=== PATIENT | male | born 1955 | race Caucasian/White ===

== ENCOUNTER 2017-05-06 19:47 | Inpatient (IN) | payer BC ==
[~2017-05-06] VITALS: Ht 188 cm; Wt 123.2 kg
[~2017-05-06 19:47] MED LIST: ALEVE220 MG PO; ASPIRIN81 M2 PO; VOLTAREN75 MG PO
[2017-05-06 20:47] LABS: MCH 31.2 PG (29.0-34.0); MCHC 34.6 G/DL (30.0-36.0); MCV 90.2 FL (86-99); MEAN PLAT.VOLUME 8.7 uM^3 (9.0-12.4); PLATELET COUNT 208 K/uL (156-360); RBC DIS.WIDTH-CV 11.7 % (11.8-14.6); RBC DIS.WIDTH-SD 38.7 % (39-53); WHITE BLOOD COUNT 12.7 K/uL (4.1-10.2)
[2017-05-06 20:56] LABS: CHLORIDE 98 mEq/L (99-109); POTASSIUM 4.2 mEq/L (3.7-5.4); SODIUM 134 mEq/L (136-147)
[2017-05-06 20:58] LABS: ADD MIUA? YES; BILIRUBIN NEGATIVE; BLOOD NEGATIVE; COLOR YELLOW ((YELLOW)); GLUCOSE (STRIP) NEGATIVE; KETONES 5; LEUKOCYTES NEGATIVE; NITRITE NEGATIVE; PROTEIN (STRIP) NEGATIVE; SPECIFIC GRAVITY 1.011 (1.000-1.030); UROBILINOGEN 0.2 MG/DL (0.2-1.0)
[2017-05-06 20:58] LABS: GLUCOSE 109 mg/dL (70-99)
[2017-05-06 20:59] LABS: ANION GAP 11 MEQ/L (2-14)
[2017-05-06 21:00] LABS: TOTAL BILIRUBIN 1.6 mg/dL (0.0-1.0)
[2017-05-06 21:01] LABS: ALKALINE PHOSPHATASE 91 IU/L (3-129)
[2017-05-06 21:02] LABS: GFR ESTIMATE (CALCULATED) > 59 mL/min/
[2017-05-06 21:03] LABS: UREA NITROGEN (BUN) 13 mg/dL (9-23)
[2017-05-06 21:09] LABS: BACTERIA RARE /HPF; EPITHELIAL CELLS NONE SEEN /HPF; MUCUS TRACE /LPF; RED BLOOD CELLS 0-5 /HPF (0-5); UCUL ADDED? NO; WHITE BLOOD CELLS 0-5 /HPF (0-5)
[2017-05-06 21:49] LABS: LIPASE 19 U/L (1.0-51.0)
[2017-05-07 00:45] LABS: APPEARANCE CLEAR/COLORLESS
[2017-05-07 00:46] LABS: CSF EOSINOPHILS ND % (0-25); MONONUCLEAR WBC'S ND % (50-90); POLYNUCLEAR WBC'S ND % (0-3); RED CELL AREA COUNTED 18; RED CELL COUNT 0 /MM^3 (0-1); RED CELL DILUTION 1; WBC AREA COUNTED 18; WBC DILUTION 1; WHITE CELL COUNT 0 /MM^3 (0-5); WHITE CELL RAW COUNT 0
[2017-05-07 04:31] VITALS: BP 134/76
[2017-05-07] MEDS ORDERED: ULTRAM50 MG PO (04:34)
[2017-05-07 07:39] LABS: INTERNAL CONTROL VALID? YES
[2017-05-07 08:27] VITALS: BP 101/51
[2017-05-07 09:47] LABS: MCH 31.6 PG (29.0-34.0); MCHC 35.1 G/DL (30.0-36.0); MCV 89.9 FL (86-99); MEAN PLAT.VOLUME 9.2 uM^3 (9.0-12.4); PLATELET COUNT 185 K/uL (156-360); RBC DIS.WIDTH-CV 11.8 % (11.8-14.6); RBC DIS.WIDTH-SD 38.6 % (39-53); RED BLOOD COUNT 4.34 M/uL (4.00-5.50); WHITE BLOOD COUNT 10.7 K/uL (4.1-10.2)
[2017-05-07 10:05] LABS: ANION GAP 10 MEQ/L (2-14); CHLORIDE 103 MEQ/L (99-109); GFR ESTIMATE (CALCULATED) > 59 mL/min/; GLUCOSE 108 mg/dL (70-99); POTASSIUM 3.9 MEQ/L (3.7-5.4); SAMPLE HEMOLYSIS CHECK 0; SAMPLE ICTERIC CHECK 0; SAMPLE LIPEMIA CHECK 0; SODIUM 136 MEQ/L (136-147); UREA NITROGEN (BUN) 14 mg/dL (9-23)
[2017-05-07 10:11] LABS: LYME DISEASE SEROLOGY SCREEN NEGATIVE (NEGATIVE)
[2017-05-07 11:57] VITALS: BP 133/69
[2017-05-07] MEDS ORDERED: FISH OIL 1,2001 EAC4 PO (12:24)
[2017-05-07 16:11] VITALS: BP 106/54
[2017-05-07 20:25] VITALS: BP 118/64
[2017-05-07 23:37] VITALS: BP 139/78
[2017-05-08 04:07] VITALS: BP 128/72
[2017-05-08 07:08] LABS: EOSINOPHIL (%) 0.3 % (0-5); HEMATOCRIT 39.3 % (38.0-50.0); IMMATURE GRANULOCYTE (%) 0.5 % (0.0-0.7); IMMATURE GRANULOCYTE COUNT 0.1 K/uL; INSTRUMENT ABS NEUTROPHIL CT 7.9 K/uL; MCH 32.2 PG (29.0-34.0); MCHC 34.9 G/DL (30.0-36.0); MCV 92.3 FL (86-99); MEAN PLAT.VOLUME 9.8 uM^3 (9.0-12.4); MONOCYTE (%) 12.8 % (3-12); MONOCYTE COUNT 1.3 K/uL (0-0.8); NEUTROPHIL (%) 76.3 % (45-76); NEUTROPHIL COUNT 7.9 K/uL (1.8-6.4); PLATELET COUNT 187 K/uL (156-360); RBC DIS.WIDTH-SD 40.8 % (39-53); RED BLOOD COUNT 4.26 M/uL (4.00-5.50); WHITE BLOOD COUNT 10.3 K/uL (4.1-10.2)
[2017-05-08 07:21] VITALS: BP 110/55
[2017-05-08 07:33] LABS: ANION GAP 9 MEQ/L (2-14); CHLORIDE 102 MEQ/L (99-109); GFR ESTIMATE (CALCULATED) > 59 mL/min/; GLUCOSE 89 mg/dL (70-99); POTASSIUM 3.9 MEQ/L (3.7-5.4); SAMPLE HEMOLYSIS CHECK 0; SAMPLE ICTERIC CHECK 0; SAMPLE LIPEMIA CHECK 0; SODIUM 138 MEQ/L (136-147); UREA NITROGEN (BUN) 12 mg/dL (9-23)
[2017-05-08 17:00] VITALS: BP 112/65
[2017-05-08 21:30] VITALS: BP 135/74
[2017-05-08 23:05] VITALS: BP 131/73
[2017-05-09 04:00] VITALS: BP 125/78
[2017-05-09 07:59] VITALS: BP 119/70
[2017-05-09 10:35] LABS: HEMATOCRIT 39.2 % (38.0-50.0); MCH 30.9 PG (29.0-34.0); MCHC 33.9 G/DL (30.0-36.0); MCV 91.2 FL (86-99); MEAN PLAT.VOLUME 9.2 uM^3 (9.0-12.4); PLATELET COUNT 205 K/uL (156-360); RBC DIS.WIDTH-SD 39.9 % (39-53); WHITE BLOOD COUNT 6.9 K/uL (4.1-10.2)
[2017-05-09 11:02] LABS: ANION GAP 8 MEQ/L (2-14); CHLORIDE 104 MEQ/L (99-109); GFR ESTIMATE (CALCULATED) > 59 mL/min/; POTASSIUM 4.1 MEQ/L (3.7-5.4); SAMPLE HEMOLYSIS CHECK 0; SAMPLE ICTERIC CHECK 0; SAMPLE LIPEMIA CHECK 0; SODIUM 138 MEQ/L (136-147); UREA NITROGEN (BUN) 10 mg/dL (9-23)
[2017-05-09 11:03] LABS: GLUCOSE 113 mg/dL (70-99)
[2017-05-09 15:02] VITALS: BP 132/72
[2017-05-09 23:51] VITALS: BP 142/71
[2017-05-10 07:29] VITALS: BP 124/80
[2017-05-10 09:24] LABS: HEMATOCRIT 38.9 % (38.0-50.0); MCH 30.6 PG (29.0-34.0); MCHC 33.4 G/DL (30.0-36.0); MCV 91.5 FL (86-99); MEAN PLAT.VOLUME 9.3 uM^3 (9.0-12.4); PLATELET COUNT 244 K/uL (156-360); RBC DIS.WIDTH-CV 11.9 % (11.8-14.6); RBC DIS.WIDTH-SD 39.9 % (39-53); RED BLOOD COUNT 4.25 M/uL (4.00-5.50); WHITE BLOOD COUNT 6.6 K/uL (4.1-10.2)
[2017-05-10 10:04] LABS: ANION GAP 8 MEQ/L (2-14); CHLORIDE 103 MEQ/L (99-109); GFR ESTIMATE (CALCULATED) > 59 mL/min/; GLUCOSE 144 mg/dL (70-99); POTASSIUM 4.5 MEQ/L (3.7-5.4); SAMPLE HEMOLYSIS CHECK 0; SAMPLE ICTERIC CHECK 0; SAMPLE LIPEMIA CHECK 0; SODIUM 139 MEQ/L (136-147); TOTAL BILIRUBIN 0.5 MG/DL (0.0-1.0); UREA NITROGEN (BUN) 11 mg/dL (9-23)
[2017-05-10 16:11] VITALS: BP 134/76
[2017-05-11 00:47] VITALS: BP 134/82
[2017-05-11 08:24] VITALS: BP 136/69
[2017-05-11] MEDS ORDERED: DOXYCYCLINE HY100 M3 PO (09:30)
[2017-05-13 18:57] LABS: M. pneumoniae Ab, IgG 1.35 (<=0.90)
== END 2017-05-11 11:21 | disposition home or self-care (01) | DRG 871 ==
LOC: EME 19:47 → RME 19:47 → EDOF 05-07 02:57 → 3EAST 05-07 02:57
PROVIDERS: Hospitalist; Physician Assistant
PROC: 009U3ZX Drainage of Spinal Canal, Percutaneous Approach, Diagnostic (ICD-10-PCS; principal; 2017-05-06)
DX: A41.9 Sepsis, unspecified organism (principal); J18.9 Pneumonia, unspecified organism; A69.20 Lyme disease, unspecified; G44.209 Tension-type headache, unspecified, not intractable; G47.30 Sleep apnea, unspecified; K40.90 Unilateral inguinal hernia, without obstruction or gangrene, not specified as recurrent; Z79.82 Long term (current) use of aspirin; Z82.0 Family history of epilepsy and other diseases of the nervous system; Z96.651 Presence of right artificial knee joint
CPT/HCPCS: 71010; 74177; 80048; 80053; 81003; 82247; 82945; 83605; 83690; 84157; 85025; 85027; 86617 90; 86618; 86618 90; 86738 90; 87040; 87070; 87205; 87449; 89051; 94660; 99281; 99285; J0456; J0696; J1644; J3030; J7030; J7050